=== PATIENT | male | born 1965 | race Caucasian/White ===

== ENCOUNTER 2022-08-01 10:50 | Emergency (ER) | payer BC, SELFPAY ==
[2022-08-01 11:16] VITALS: BP 137/80; PULSE 91; RESP 18; TEMP 35.9; O2SAT 95; BMI 33.2
--- NOTE | 2022-08-01 12:54 | ED_ITS ---
HPI - General Adult General Time Seen by Provider: 12:54 Date Seen: 08/01/22 Chief complaint: Extremity Pain/Injury, Upper Stated complaint: Left wrist injury Time Seen by Provider: 08/01/22 12:48 Source: patient and RN notes reviewed Mode of arrival: ambulatory Limitations: no limitations History of Present Illness HPI narrative: Patient is a 57-year-old male coming in with left wrist pain. He took a nap on Monday and when he woke up with painful. It is continuing to become more painful. It is throbbing. He has tried ice but states he has not tried anythi ng else. He thinks maybe perhaps he should have tried some [id number] medicines. 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 He is supposed to go to work in about an hour. The wrist is becoming more swollen and more painful. He has had no fevers or chills. Is not aware of any trauma. He had couple alcoholic beverages Monday night but nothing significant. He is not aware of family history of gout. He himself has never had gout or pseudogout before, no joint issues that he is aware of. Related Data Home Medications Medication Instructions Recorded Confirmed albuterol sulfate 90 mcg/actuation 1 inh inhalation Q4H PRN 08/01/22 08/01/22 aerosol inhaler (Ventolin HFA) atorvastatin 20 mg tablet 20 mg PO DAILY 08/01/22 08/01/22 fluticasone 250 mcg-salmeterol 50 1 inh inhalation Q12H 08/01/22 08/01/22 mcg/dose blistr powdr for inhalation (Advair Diskus) hydrochlorothiazide 25 mg tablet 25 mg PO DAILY 08/01/22 08/01/22 losartan 50 mg tablet 50 mg PO DAILY 08/01/22 08/01/22 Allergies Allergy/AdvReac Type Severity Reaction Status Date / Time Penicillins Allergy Unknown Verified 08/01/22 11:22 Review of Systems Status of ROS: Reports: 6 or more systems reviewed and unremarkable except as noted in History and below Exam Const: Vital Signs, click to edit/add: Vital Signs - 24 hr 08/01/22 11:16 08/01/22 14:16 Temperature 96.6 F L Pulse Rate [Right Pulse Oximeter] 91 88 Respiratory Rate 18 18 Blood Pressure [Ri ght Upper Arm] 137/80 154/87 H Pulse Oximetry 95 96 Oxygen Delivery Me thod Room Air Room Air Documenting provider has reviewed patient's vital signs: yes Common normals: no apparent distress (But definitely seems to have pain about his left wrist.), average body habitus, oriented x3, no limitations, healthy appearing, alert and well nourished General appearance: cooperative, comfortable, well kempt and well developed HENMT: Common normals: normocephalic, head/scalp atraumatic, hearing grossly normal bilaterally, external nose normal and nasal mucous membranes and turbinates normal Head and scalp: normocephalic and atraumatic Nose: external nose normal and nasal mucous membranes and turbinates normal Eye: Common normals: PERRL, EOMs intact bilaterally and conjunctivae normal Conjunctiva: conjunctiva(e) normal Pupil: PERRL Neck & C-Spine: Common normals: full ROM, no lymphadenopathy, supple, no meningeal signs, no JVD and thyroid normal Thyroid: thyroid normal Resp: Common normals: normal respiratory effort, no retractions, no use of accessory muscles and clear to auscultation bilaterally Auscultation: clear to auscultation bilaterally Cardio: Common normals: no JVD, regular rate, regular rhythm, S1 normal heart sound, S2 normal heart sound, no gallops, no clicks and no murmurs Rate: regular rate Rhythm: regular rhythm Heart sounds: S1 normal and S2 normal Extremity: Other: Has obvious swelling about his left wrist, is warm but no significant erythema at this point. Is globally tender throughout the whole wrist. Has a good radial pulse but even palpating over the radial pulse is swollen and tender for him. He has normal sensation of the fingers in his hand, good cap refill but any movement of his fingers causes pain back into the wrist. No open wounds noted. He is not tender in his hand or fingers per se, no pain in his forearm elbow upper arm or shoulder. Neuro: Common normals: oriented x3 Sensorium/orientation: alert Meningeal signs: no meningeal signs Psych: Appearance: well kempt Course Course Hospital Course: Reviewed with patient that I am concerned about inflammatory arthritis like gout or pseudogout. If indeed it does turn operator to be something like gout, his hydrochlorothiazide could make him at increased risk. He may need to follow up with his primary care provider to be on something different. Discussed workup, recommend labs including uric acid. Have reviewed that if the uric acid is indeed quite elevated it helps with diagnosis but it does not mean he does not have gout if he would have a normal uric acid. The wrist is not a joint that I would consider attempting to get fluid for analysis of crystals as it is beyond my clinical experience. We will look at x-rays as well. This does not seem like it is a septic joint, patient has no fever and certainly does not seem ill. Offered IV for toradol but he declines, accepts IM instead. Reviewed that we will provide him a note for work, he cannot safely work with his wrist like this. Reevaluation(s) Reevaluation #1: Reviewed with patient that I do believe that this is gout. Talked about continuing using the Misael wrap as needed for comfort, elevating and using ice. We will initiate prednisone. He can still use [id number] Tylenol and ibuprofen following bottle directions. Did caution him to be careful using prednisone and ibuprofen, both can have irritant affects on the stomach into take with food. Will give him a few tablets of oxycodone to joiner helper in sleep. Have advised to me needs to follow up in clinic in the next 1-2 weeks, need to discuss hydrochlorothiazide use or consideration of a gout suppressants such as allopurinol. He does feel better with the Toradol on board. Time: 15:01 Vital Signs Vital signs: Initial Vital Signs Temperature 96.6 F L 08/01/22 11:16 Temperature Source Temporal Artery Scan 08/01/22 11:16 Pulse Rate 91 08/01/22 11:16 Respiratory Rate 18 08/01/22 11:16 Blood Pressure 137/80 08/01/22 11:16 Blood Pressure Mean 99 08/01/22 11:16 Blood Pressure Position Sitting 08/01/22 11:16 Pulse Oximetry 95 08/01/22 11:16 Oxygen Delivery Method 08/01/22 11:16 Vital Signs Temperature 96.6 F L 08/01/22 11:16 Pulse Rate 91 08/01/22 11:16 Respiratory Rate 18 08/01/22 11:16 Blood Pressure 137/80 08/01/22 11:16 Pulse Oximetry 95 08/01/22 11:16 Oxygen Delivery Method 08/01/22 11:16 Temperature 96.6 F L 08/01/22 11:16 Pulse Rate 88 08/01/22 14:16 Respiratory Rate 18 08/01/22 14:16 Blood Pressure 154/87 H 08/01/22 14:16 Pulse Oximetry 96 08/01/22 14:16 Oxygen Delivery Method 08/01/22 14:16 Medical Decision Making Lab Data Lab results reviewed: Yes I reviewed the patient's lab results Labs: Lab Results 08/01/22 08/01/22 08/01/22 Range/Units 13:13 13:13 13:13 WBC 18.45 H (4.50-11.00) K/uL RBC 4.90 (4.30-5.90) m/uL Hgb 15.1 (13.5-17.5) gm/dL Hct 45.8 (37.0-53.0) % MCV 94 (80-100) fL MCH 31 (26-34) pg MCHC 33 (32-36) gm/dL RDW Coeff of Sreekanth 12.2 (11.5-15.5) % Plt Count 268 (140-440) K/uL Neut % (Auto) 87.7 H (42.0-72.0) % Lymph % (Auto) 4.2 L (20-44) % [place] % (Auto) 6.4 (0.0-11.0) % Eos % (Auto) 1.3 (0.0-7.0) % Baso % (Auto) 0.2 (0.0-3.0) % Neut # (Auto) 16.20 H (1.7-7.0) K/uL Lymph # (Auto) 0.80 L (0.90-2.90) K/uL [place] # (Auto) 1.20 H (0.00-0.90) K/UL Eos # (Auto) 0.20 (0.00-0.50) K/uL Baso # (Auto) 0.00 (0.00-0.30) K/uL ESR 7 (2-15) mm/hr Sodium 137 (135-149) mmol/L Potassium 3.6 (3.6-5.1) mmol/L Chloride 98 (96-114) mmol/L Carbon Dioxide 28 (20-32) mmol/L BUN 10 (7-30) mg/dL Creatinine 0.6 (0.5-1.5) mg/dL Estimated Creat Clear 135.84 Estimated GFR 113 ml/min Glucose 136 H (60-115) mg/dL Uric Acid 8.5 H (2.2-8.4) mg/dL Calcium 9.1 (8.4-10.6) mg/dL C-Reactive Protein 1.2 H (0.5-1.0) mg/dL Imaging Data X-ray left wrist: Attestation: I have reviewed the pertinent imaging results. My impression: I see no acute pathology on my preliminary review. Radiologist's impression: Patient: JASIEL MCMAHON Facility:?[facility] [place] Patient ID:?[id number] Site Patient ID:?[id number]. Site :?[id number] Study:?XRay Extremity Left WRIST 3V-08/01/2022 1:24:53 PM Ordering Physician:?Anderson Polo Final Report: Indication: Left wrist pain. No known injury. Technique: Three views of the left wrist. Comparison: None Findings/Impression: No acute fracture or dislocation. No focal soft tissue abnormality identified. Dictated by Adele Licona MD @ 08/01/2022 1:36:13 PM (Electronic Signature) Critical Care Time Critical Care Time Critical Care Time: No Discharge Plan Discharge Clinical Impression: Acute gout of left wrist Patient Disposition: Home, Self-Care Condition: Stable Instructions: Low Purine Diet (ED), Gout (ED) Additional Instructions: Drink plenty of water. Review handouts including the dietary management of gout. We will initiate prednisone to help suppress the left wrist gout symptoms. Do need to follow up in clinic within the next 1-2 weeks, consider the use of hydrochlorothiazide as this can increase gout risk. Ice, elevate this wrist. If you develop fever, have increasing swelling and pain despite use of prednisone, are not improving at all over the next week, do need to be re- evaluated. 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 Activity Level: Activity as Tolerated Prescriptions: No Action atorvastatin 20 mg tablet 20 mg PO DAILY albuterol sulfate [Ventolin HFA] 90 mcg/actuation HFA aerosol inhaler 1 inh INHALATION Q4H PRN losartan 50 mg tablet 50 mg PO DAILY hydrochlorothiazide 25 mg tablet 25 mg PO DAILY fluticasone propion-salmeterol [Advair Diskus] 250-50 mcg/dose blister with device 1 inh INHALATION Q12H Follow Up/Referrals: Tejas Rico MD [Primary Care Provider] - Stand Alone Forms: [employer] Info Instructions
--- NOTE | 2022-08-01 13:02 | CRLHL7_ITS ---
For Patients: As a result of the Cures Act, medical imaging exams and procedure reports are released immediately into your electronic medical record. You may view this report before your referring provider. If you have questions, please contact your health care provider. Indication: Left wrist pain. No known injury. Technique: Three views of the left wrist. Comparison: None Findings/Impression: No acute fracture or dislocation. No focal soft tissue abnormality identified. Dictated by Adele Licona MD @ 08/01/2022 1:36:13 PM (Electronically Signed)
[2022-08-01 13:20] LABS: Basophils Percent Auto 0.2 % (0.0-3.0); Eosinophils Percent Auto 1.3 % (0.0-7.0); Hematocrit 45.8 % (37.0-53.0); Hemoglobin* 15.1 gm/dL (13.5-17.5); Immature Granulocytes Pct Auto 0.2 %; Lymphocytes Percent Auto 4.2 % (20-44); Mean Corpuscular HGB Conc 33 gm/dL (32-36); Mean Corpuscular Hemoglobin 31 pg (26-34); Mean Corpuscular Volume 94 fL (80-100); Monocytes Percent Auto 6.4 % (0.0-11.0); Neutrophils Percent Auto 87.7 % (42.0-72.0); Platelet Count* 268 K/uL (140-440); RDW Coefficient of Variation % 12.2 % (11.5-15.5); White Blood Count* 18.45 K/uL (4.50-11.00)
[2022-08-01] MEDS: KETOROLAC 30 MG/ML inj IM (13:27)
[2022-08-01 13:29] LABS: Slide Review Reflex No
[2022-08-01 13:33] LABS: Chloride* 98 mmol/L (96-114); Potassium* 3.6 mmol/L (3.6-5.1); Sodium* 137 mmol/L (135-149)
[2022-08-01 13:36] LABS: Creatinine* 0.6 mg/dL (0.5-1.5); Est. Creatinine Clearance* 135.84; Estimated Glomerular Filt Rate 113 ml/min
[2022-08-01 13:37] LABS: Blood Urea Nitrogen* 10 mg/dL (7-30); Calcium* 9.1 mg/dL (8.4-10.6); Carbon Dioxide* 28 mmol/L (20-32); Glucose* 136 mg/dL (60-115); Uric Acid* 8.5 mg/dL (2.2-8.4)
[2022-08-01 13:39] LABS: C Reactive Protein* 1.2 mg/dL (0.5-1.0)
[2022-08-01 14:09] LABS: Erythrocyte SedimentationRate* 7 mm/hr (2-15)
[2022-08-01 14:16] VITALS: BP 154/87; PULSE 88; RESP 18; O2SAT 96
== END 2022-08-01 15:16 | disposition home or self-care (01) ==
PROVIDERS: Emergency Provider Family Medicine; PCP Family Medicine
DX: M10.032 Idiopathic gout, left wrist (principal)
CPT/HCPCS: 36415; 73110; 80048; 84550; 85025; 85651; 86140; 96372; 99284; J1885

== ENCOUNTER 2022-08-08 08:11 | Emergency (ER) | payer BC, SELFPAY ==
[2022-08-08 08:15] VITALS: BP 194/121; PULSE 89; RESP 22; TEMP 36.1; O2SAT 98
--- NOTE | 2022-08-08 09:00 | ED.GENADULT ---
HPI - General Adult General Chief complaint: Extremity Pain/Injury, Upper Stated complaint: Left wrist pain Time Seen by Provider: 08/08/22 08:49 History of Present Illness HPI narrative: This 57-year-old male comes in with persistent left wrist pain and swelling. These symptoms started about a week ago and there was no injury event or strenuous activity to bring this on. He did come in here for evaluation and was diagnosed with gout. His uric acid was slightly elevated at 8.5. He completed a course of steroids and some oxycodone for pain relief and states that he felt better about 3 days later but now symptoms have worsened again. He does not report any fevers. He does not have a personal prior history of gout but there are family members who have had gout symptoms. Related Data Home Medications Medication Instructions Recorded Confirmed albuterol sulfate 90 mcg/actuation 1 inh inhalation Q4H PRN 08/01/22 08/08/22 aerosol inhaler (Ventolin HFA) atorvastatin 20 mg tablet 20 mg PO DAILY 08/01/22 08/08/22 fluticasone 250 mcg-salmeterol 50 1 inh inhalation Q12H 08/01/22 08/08/22 mcg/dose blistr powdr for inhalation (Advair Diskus) hydrochlorothiazide 25 mg tablet 25 mg PO DAILY 08/01/22 08/08/22 losartan 50 mg tablet 50 mg PO DAILY 08/01/22 08/08/22 Previous Rx's Medication Instructions Recorded hydrocodone 5 mg-acetaminophen 325 1 tab PO Q4-6H PRN pain #15 tabs 08/08/22 mg tablet ketorolac 10 mg tablet 10 mg PO Q8H 5 days #15 tabs 08/08/22 methylprednisolone 4 mg tablets in See Rx Instructions PO .COMPLEX 08/08/22 a dose pack (Medrol (Reji)) #21 ea Allergies Allergy/AdvReac Type Severity Reaction Status Date / Time Penicillins Allergy Unknown Verified 08/08/22 08:17 Review of Systems Status of ROS: Reports: 10 or more systems reviewed and unremarkable except as noted in History and below Narrative: Constitutional: No fevers, no weight gain or loss. Eyes: No discharge. No vision changes. HENT: No congestion, no sore throat, no ear pain. Cardiovascular: No chest pain, no palpitations. Respiratory: No shortness of breath, no wheezes, no cough. Gastrointestinal: No abdominal pain, no vomiting, no diarrhea. Genitourinary: No dysuria, no hematuria. Musculoskeletal: Left wrist pain and swelling with associated decreased range of motion. Skin: No rashes, no pruritis. Neurological: No dizziness, weakness, sensory change, speech change. Endo/Heme/Allergies: No bruising or bleeding. No polydipsia. Pysch: no suicidality, no anxiety, no insomnia. All other systems reviewed and are negative. PFSH PFS Social History Smoking Status: Unknown if ever smoked Exam Narrative: Exam Narrative: Constitutional: Well-developed, well-nourished, no acute distress. HEENT: Normocephalic, atraumatic. Neck: Normal range of motion. Nontender. Supple. Heart: Intact distal pulses. Lungs: No chest discomfort. No wheezes, rhonchi, or rales. Abdomen: Nontender. Back: Normal range of motion. Extremities: Left wrist has swelling and mild erythema with some increased warmth. Painful range of motion. Skin: Intact. No rash. Warm. No erythema or pallor. Neurologic: No altered sensation. No weakness. Alert and oriented. Psychiatric: No suicidality. No anxiety or depression. No insomnia. Nursing notes and vitals signs are reviewed. Const: Vital Signs, click to edit/add: Vital Signs - 24 hr 08/08/22 08:15 Temperature 97 F L Pulse Rate [Pulse Oximeter] 89 Respiratory Rate 22 Blood Pressure [Ri ght Upper Arm] 194/121 H Pulse Oximetry 98 Oxygen Delivery Me thod Room Air Course Vital Signs Vital signs: Initial Vital Signs Temperature 97 F L 08/08/22 08:15 Temperature Source Temporal Artery Scan 08/08/22 08:15 Pulse Rate 89 08/08/22 08:15 Pulse Rhythm 08/08/22 08:15 Pulse Strength 3+ Normal 08/08/22 08:15 Respiratory Rate 22 08/08/22 08:15 Blood Pressure 194/121 H 08/08/22 08:15 Blood Pressure Mean 145 08/08/22 08:15 Blood Pressure Position Sitting 08/08/22 08:15 Pulse Oximetry 98 08/08/22 08:15 Oxygen Delivery Method 08/08/22 08:15 Vital Signs Temperature 97 F L 08/08/22 08:15 Pulse Rate 89 08/08/22 08:15 Respiratory Rate 22 08/08/22 08:15 Blood Pressure 194/121 H 08/08/22 08:15 Pulse Oximetry 98 08/08/22 08:15 Oxygen Delivery Method 08/08/22 08:15 Temperature 97 F L 08/08/22 08:15 Pulse Rate 89 08/08/22 08:15 Respiratory Rate 22 08/08/22 08:15 Blood Pressure 194/121 H 08/08/22 08:15 Pulse Oximetry 98 08/08/22 08:15 Oxygen Delivery Method 08/08/22 08:15 Medical Decision Making MDM Narrative Medical decision making narrative: This patient comes back for re-evaluation regarding left wrist pain and swelling. He was diagnosed with gout a week ago as his uric acid level was slightly elevated. Consideration was made also for the possibility of a septic joint. He is not showing any sign of fever and did improve with treatments given last week but symptoms have returned. I did discuss options for acquiring labs again and a more definitive diagnosis with a joint aspiration. I do not think that he has a septic joint and do believe that this is an inflammatory process related to gout. The patient declined any lab and imaging options today. He did received prescription for Medrol Dosepak, Toradol, and [place]. He also received a wrist splint. Discharge Plan Discharge Clinical Impression: Acute gout of left wrist Patient Disposition: Home, Self-Care Condition: Stable Additional Instructions: Take medication as needed and prescribed. Wear splint also as needed. Increase activity as tolerated. Return if worsening symptoms happen. Prescriptions: New hydrocodone-acetaminophen 5-325 mg tablet 1 tab PO Q4-6H PRN (Reason: pain) Qty: 15 0RF ketorolac 10 mg tablet 10 mg PO Q8H 5 Days Qty: 15 0RF methylprednisolone [Medrol (Reji)] 4 mg tablets,dose pack See Rx Instructions .ROUTE .COMPLEX Qty: 21 0RF Rx Instructions: orally per package directions No Action atorvastatin 20 mg tablet 20 mg PO DAILY albuterol sulfate [Ventolin HFA] 90 mcg/actuation HFA aerosol inhaler 1 inh INHALATION Q4H PRN losartan 50 mg tablet 50 mg PO DAILY hydrochlorothiazide 25 mg tablet 25 mg PO DAILY fluticasone propion-salmeterol [Advair Diskus] 250-50 mcg/dose blister with device 1 inh INHALATION Q12H Follow Up/Referrals: VogatoTejas, MD [Primary Care Provider] - Stand Alone Forms: [employer] Info Instructions
== END 2022-08-08 09:20 | disposition home or self-care (01) ==
LOC: ED 09:07
PROVIDERS: Emergency Provider Emergency Medicine Emergency Medical Services; PCP Family Medicine
DX: M10.032 Idiopathic gout, left wrist (principal)
CPT/HCPCS: 29125; 99283; 99284

== ENCOUNTER 2022-10-09 12:57 | Emergency (ER) | payer BC, SELFPAY ==
[2022-10-09 13:05] VITALS: BP 180/95; PULSE 100; RESP 20; TEMP 36.5; O2SAT 96; BMI 32.7
--- NOTE | 2022-10-09 21:19 | ED.UPPEXIN ---
HPI - Extremity Injury (Upper) General Date Seen: 10/09/22 Chief Complaint: Extremity Pain/Injury, Upper Stated Complaint: L wrist pain Time Seen by Provider: 10/09/22 13:06 Source: patient Mode of arrival: ambulatory Limitations: no limitations History of Present Illness HPI narrative: Patient is a 57-year-old gentleman who presents here with left wrist pain, he has been struggling for gout on off for the past few months, been to the ER it least once with this, the last few days he has noted increased pain in his left wrist, he has per previously got a Medrol Dosepak and also a Percocet, and wore a splint, he is out of his Percocet wonders if he get some more. He notes that he has not been his primary care physician, for this, on review of the [employer] he does have a couple prescriptions but all only from our emergency room here. MD complaint: injury to: left Onset (ago): day(s) Related Data Home Medications Medication Instructions Recorded Confirmed albuterol sulfate 90 mcg/actuation 1 inh inhalation Q4H PRN 08/01/22 08/08/22 aerosol inhaler (Ventolin HFA) atorvastatin 20 mg tablet 20 mg PO DAILY 08/01/22 08/08/22 fluticasone 250 mcg-salmeterol 50 1 inh inhalation Q12H 08/01/22 08/08/22 mcg/dose blistr powdr for inhalation (Advair Diskus) hydrochlorothiazide 25 mg tablet 25 mg PO DAILY 08/01/22 08/08/22 losartan 50 mg tablet 50 mg PO DAILY 08/01/22 08/08/22 Previous Rx's Medication Instructions Recorded hydrocodone 5 mg-acetaminophen 325 1 tab PO Q4-6H PRN pain #15 tabs 08/08/22 mg tablet ketorolac 10 mg tablet 10 mg PO Q8H 5 days #15 tabs 08/08/22 methylprednisolone 4 mg tablets in See Rx Instructions PO .COMPLEX 08/08/22 a dose pack (Medrol (Reji)) #21 ea indomethacin 50 mg capsule 50 mg PO BID #20 caps 10/09/22 methylprednisolone 4 mg tablets in See Rx Instructions PO .COMPLEX 10/09/22 a dose pack (Medrol (Reji)) #21 ea Allergies Allergy/AdvReac Type Severity Reaction Status Date / Time Penicillins Allergy Unknown Verified 08/08/22 08:17 Review of Systems Status of ROS: Reports: 6 or more systems reviewed and unremarkable except as noted in History and below PFSH PFSH Social History Smoking Status: Unknown if ever smoked Do you use any of these nicotine containing products: None Second hand tobacco smoke exposure: No How often do you have a drink containing alcohol: never How often do you have six or more drinks on one occasion: Never AUDIT-C Alcohol total score: 0 Non-prescribed substance use: denies use service: No Exam Narrative: Exam Narrative: On examination there is mild swelling of the left wrist, his range of motion is probably 30? to 50?, he is very mildly tender, but no warmth associated with this, no evidence of trauma bruising noted. Const: Vital Signs, click to edit/add: Vital Signs - 24 hr 10/09/22 13:05 Temperature 97.7 F Pulse Rate [Pulse Oximeter] 100 Respiratory Rate 20 Blood Pressure [Ri ght Upper Arm] 180/95 H Pulse Oximetry 96 Documenting provider has reviewed patient's vital signs: yes Course Course Hospital Course: Discussed with the patient that we should not give him Percocet is is very habit-forming and I do not want a put down that pathway, we will give him a Medrol Dosepak, have him follow that with some indomethacin 50 mg p.o. t.i.d. I have encouraged him to follow-up with primary care physician for they can check his gout levels and consider maybe putting him on allopurinol or something to prevent this in the future, I did also consider putting him on colchicine, but once I told him about the diarrhea that this caused he declined it. Vital Signs Vital signs: Initial Vital Signs Temperature 97.7 F 10/09/22 13:05 Temperature Source Temporal Artery Scan 10/09/22 13:05 Pulse Rate 100 10/09/22 13:05 Respiratory Rate 20 10/09/22 13:05 Blood Pressure 180/95 H 10/09/22 13:05 Blood Pressure Mean 123 10/09/22 13:05 Pulse Oximetry 96 10/09/22 13:05 Vital Signs Temperature 97.7 F 10/09/22 13:05 Pulse Rate 100 10/09/22 13:05 Respiratory Rate 20 10/09/22 13:05 Blood Pressure 180/95 H 10/09/22 13:05 Pulse Oximetry 96 10/09/22 13:05 Temperature 97.7 F 10/09/22 13:05 Pulse Rate 100 10/09/22 13:05 Respiratory Rate 20 10/09/22 13:05 Blood Pressure 180/95 H 10/09/22 13:05 Pulse Oximetry 96 10/09/22 13:05 MDM - Extremity Injury (Upper) MDM Narrative Medical decision making narrative: During this evaluation I considered multiple possibilities including septic arthritis, gout, trauma, falls, or other causes a wrist pain. Medical Records Attestation: I reviewed the patient's medical records. Discharge Plan Discharge Clinical Impression: Gouty arthritis Patient Disposition: Home, Self-Care Condition: Stable Instructions: Low Purine Diet (ED), Gout (ED) Additional Instructions: Home rest continue use her splint, use the Medrol Dosepak along with the indomethacin. Recommend follow-up this week with your primary care physician, to consider taking medications such as allopurinol, increasing redness, fevers chills or sweats, he should come back and be seen. Did not take any other medications such as Advil, Aleve, Toradol with the medications I have prescribed. Prescriptions: New methylprednisolone [Medrol (Reji)] 4 mg tablets,dose pack See Rx Instructions .ROUTE .COMPLEX Qty: 21 0RF Rx Instructions: orally per package directions indomethacin 50 mg capsule 50 mg PO BID Qty: 20 0RF Rx Instructions: administer with food or milk No Action atorvastatin 20 mg tablet 20 mg PO DAILY albuterol sulfate [Ventolin HFA] 90 mcg/actuation HFA aerosol inhaler 1 inh INHALATION Q4H PRN losartan 50 mg tablet 50 mg PO DAILY hydrochlorothiazide 25 mg tablet 25 mg PO DAILY fluticasone propion-salmeterol [Advair Diskus] 250-50 mcg/dose blister with device 1 inh INHALATION Q12H hydrocodone-acetaminophen 5-325 mg tablet 1 tab PO Q4-6H PRN (Reason: pain) Qty: 15 0RF ketorolac 10 mg tablet 10 mg PO Q8H 5 Days Qty: 15 0RF methylprednisolone [Medrol (Reji)] 4 mg tablets,dose pack See Rx Instructions .ROUTE .COMPLEX Qty: 21 0RF Rx Instructions: orally per package directions Follow Up/Referrals: Votel,Tejas, MD [Primary Care Provider] - Stand Alone Forms: [employer] Info Instructions
== END 2022-10-09 14:12 | disposition home or self-care (01) ==
PROVIDERS: Emergency Provider Family Medicine; PCP Family Medicine
DX: M10.9 Gout, unspecified (principal)
CPT/HCPCS: 99283

== ENCOUNTER 2024-04-11 11:33 | Emergency (ER) | payer BC, SELFPAY ==
[2024-04-11 11:40] VITALS: BP 196/104; PULSE 93; RESP 16; TEMP 37.2; O2SAT 93; BMI 32.3
--- NOTE | 2024-04-11 11:45 | CRLHL7_ITS ---
For Patients: As a result of the Cures Act, medical imaging exams and procedure reports are released immediately into your electronic medical record. You may view this report before your referring provider. If you have questions, please contact your health care provider. Indication: Fall. Technique: Three views right shoulder. Comparison: Clavicle same day. Findings/Impression: No acute displaced fracture. Refer to clavicle of same day for assessment of AC joint. No soft tissue swelling. Remaining joint spaces are maintained. Glenohumeral joint arthrosis. Bony mineralization is age appropriate. Dictated by Alexandre Perez MD @ 04/11/2024 12:16:46 PM (Electronically Signed)
--- NOTE | 2024-04-11 11:45 | CRLHL7_ITS ---
For Patients: As a result of the Cures Act, medical imaging exams and procedure reports are released immediately into your electronic medical record. You may view this report before your referring provider. If you have questions, please contact your health care provider. Indication: Fall. Technique: Two views right clavicle. Comparison: None. Findings/Impression: No acute displaced fracture. Widening of the AC joint measuring up to 9 millimeters with subtle superior subluxation of the clavicle on the acromion suggesting underlying AC joint injury. Bony mineralization is age appropriate. Dictated by Alexandre Perez MD @ 04/11/2024 12:15:32 PM (Electronically Signed)
--- NOTE | 2024-04-11 11:52 | ED.UPPEXIN ---
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 States that last night he was coming down some steps and missed the past couple. Did not fall back hit his head but instead went forward hitting his right shoulder against a wall. Since that time he has had a bump in that area. He notes discomfort with lifting his arm. He has no numbness or tingling of his arm, however. Denies head injury neck injury difficulty breathing or any other symptoms. Related Data Home Medications ?Medication ?Instructions ?Recorded ?Confirmed atorvastatin 20 mg tablet 20 mg PO DAILY 08/01/22 04/11/24 fluticasone 250 mcg-salmeterol 50 1 inh inhalation Q12H 08/01/22 04/11/24 mcg/dose blistr powdr for inhalation (Advair Diskus) hydrochlorothiazide 25 mg tablet 25 mg PO DAILY 08/01/22 04/11/24 losartan 100 mg tablet 100 mg PO DAILY 04/11/24 04/11/24 Allergies Allergy/AdvReac Type Severity Reaction Status Date / Time Penicillins Allergy Unknown Verified 08/08/22 08:17 Review of Systems Status of ROS: Reports: 6 or more systems reviewed and unremarkable except as noted in History and below PFSH PFS Social History Smoking Status: Unknown if ever smoked Do you use any of these nicotine containing products: None Second hand tobacco smoke exposure: No How often do you have a drink containing alcohol: 2-3 times a week How many standard drinks containing alcohol do you have on a typical day: 1 or 2 How often do you have six or more drinks on one occasion: Never AUDIT-C Alcohol total score: 3 Non-prescribed substance use: marijuana (any form) service: No Exam Narrative: Exam Narrative: Sheldon is alert and oriented. Very well-spoken gentleman. No acute distress. Palpation of the clavicle notes to be tender over the AC joint and distal clavicle along with some soft tissue swelling in this area approximately palm sized. Patient has distally good range of motion as well as motor and sensation. No pain with palpation over cervical spine midline and range of motion is full. Head is atraumatic. No respiratory distress. Const: Vital Signs, click to edit/add: Vital Signs - 24 hr 04/11/24 11:40 Temperature 98.9 F Pulse Rate [Left P ulse Oximeter] 93 Respiratory Rate 16 Blood Pressure [Le ft Upper Arm] 196/104 H Pulse Oximetry 93 Oxygen Delivery Me thod Room Air Documenting provider has reviewed patient's vital signs: yes Course Vital Signs Vital signs: Initial Vital Signs Temperature 98.9 F 04/11/24 11:40 Temperature Source Temporal Artery Scan 04/11/24 11:40 Pulse Rate 93 04/11/24 11:40 Respiratory Rate 16 04/11/24 11:40 Blood Pressure 196/104 H 04/11/24 11:40 Blood Pressure Mean 134 H 04/11/24 11:40 Blood Pressure Position Sitting 04/11/24 11:40 Pulse Oximetry 93 04/11/24 11:40 Oxygen Delivery Method Room Air 04/11/24 11:40 Vital Signs Temperature 98.9 F 04/11/24 11:40 Pulse Rate 93 04/11/24 11:40 Respiratory Rate 16 04/11/24 11:40 Blood Pressure 196/104 H 04/11/24 11:40 Pulse Oximetry 93 04/11/24 11:40 Oxygen Delivery Method Room Air 04/11/24 11:40 Temperature 98.9 F 04/11/24 11:40 Pulse Rate 93 04/11/24 11:40 Respiratory Rate 16 04/11/24 11:40 Blood Pressure 196/104 H 04/11/24 11:40 Pulse Oximetry 93 04/11/24 11:40 Oxygen Delivery Method Room Air 04/11/24 11:40 MDM - Extremity Injury (Upper) MDM Narrative Medical decision making narrative: 1. AC joint separation-at this time patient will be placed in sling. He is left-hand dominant and this happened on his right side. Ibuprofen or other in anti-inflammatory such as Aleve as needed for discomfort. Currently awaiting consult with ortho PA to see if patient would benefit from any sort of physical therapy. Your 2. . Disposition-home at this time. Note for work with no use of right arm for the next 5 days. Return as needed for worsening symptoms. Patient called at home after ice pork with orthopedics. They are requesting 2 weeks in a sling. After that if he still having ongoing issues they do consider physical therapy. Patient will follow-up next week with his primary. Medical Records Attestation: I reviewed the patient's medical records. Imaging Data Right shoulder x-ray: Attestation: I have reviewed the pertinent imaging results. My impression: I do not note any acute fractures or dislocation. Radiologist's impression: Comparison: Clavicle same day. Findings/Impression: No acute displaced fracture. Refer to clavicle of same day for assessment of AC joint. No soft tissue swelling. Remaining joint spaces are maintained. Glenohumeral joint arthrosis. Bony mineralization is age appropriate. Clavicle x-ray: Attestation: I have reviewed the pertinent imaging results. My impression: No evidence of fracture Radiologist's impression: None. Findings/Impression: No acute displaced fracture. Widening of the AC joint measuring up to 9 millimeters with subtle superior subluxation of the clavicle on the acromion suggesting underlying AC joint injury. Bony mineralization is age appropriate. Discharge Plan Discharge Clinical Impression: AC separation Qualifiers: Encounter type: initial encounter Laterality: right Qualified Code(s): S43.101A - Unspecified dislocation of right acromioclavicular joint, initial encounter Patient Disposition: Home, Self-Care Condition: Unchanged Additional Instructions: Sling to help with comfort. Ibuprofen as needed for discomfort. Recheck your blood pressure over the next few days. It was elevated today but certainly can be secondary to pain. No use of right arm for lifting for the next 5 days. Note for work for you provided. I will give you a call if Orthopedics suggests physical therapy or follow-up. Prescriptions: No Action atorvastatin 20 mg tablet 20 mg PO DAILY hydrochlorothiazide 25 mg tablet 25 mg PO DAILY fluticasone propion-salmeterol [Advair Diskus] 250-50 mcg/dose blister with device 1 inh INHALATION Q12H losartan 100 mg tablet 100 mg PO DAILY Follow Up/Referrals: Tejas Rico MD [Primary Care Provider] - Stand Alone Forms: LoveThis Info Instructions
== END 2024-04-11 13:03 | disposition home or self-care (01) ==
PROVIDERS: Emergency Provider Family Medicine; PCP Family Medicine
DX: S43.101A Unspecified dislocation of right acromioclavicular joint, initial encounter (principal)
CPT/HCPCS: 73000; 73030; 99283